=== PATIENT | female | born 1960 | race Hispanic/Latino ===

== ENCOUNTER 2022-03-19 15:31 | Outpatient (CLI) | payer BC | END 2022-03-19 15:32 | disposition home or self-care (01) | LOC: CSHMAMMO 15:31 | PROVIDERS: ATTEND Family Medicine | DX: Z12.31 Encounter for screening mammogram for malignant neoplasm of breast (principal); Z80.3 Family history of malignant neoplasm of breast | CPT/HCPCS: 77063; 77067 ==

== ENCOUNTER 2025-08-05 17:58 | Emergency (ER) | payer BC | END 2025-08-05 20:05 | disposition home or self-care (01) | LOC: CSHERS 17:58 | DX: S80.01XA Contusion of right knee, initial encounter (principal); R07.89 Other chest pain; W01.10XA Fall on same level from slipping, tripping and stumbling with subsequent striking against unspecified object, initial encounter | CPT/HCPCS: 99283 ==